=== PATIENT | female | born 2005 | race Two or more races ===

== ENCOUNTER 2023-02-17 11:00 | Inpatient (IN) | payer OTHER ==
[2023-02-17] MEDS: ELECTROLYTE-148 SOLN 1,000 ML IV SCH ×3 (12:45→21:20)
[2023-02-17 13:07] VITALS: BMI 27.1
[2023-02-17] MEDS ORDERED: AMPICILLIN - 2 GM in SODIUM CHLORIDE 100 ML IVPB ONE (13:16)
[2023-02-17 13:38] LABS: BASO % 0.4 % (0-2.0); EOS % 2.2 % (0-4.5); HEMOGLOBIN 10.8 GM/dL (10.7-15.3); LYMPH % 14.4 % (8-40); MCH 28.2 pg (25.7-33.7); MCHC 33.7 g/dl (32.0-36.0); MEAN CELL VOLUME 83.6 fl (80-96); MEAN PLT VOLUME 9.8 fl (7.5-11.1); MONO % 6.8 % (3.8-10.2); NEUT % 76.2 % (42.8-82.8); PLATELET COUNT 231 10^3/uL (134-434); RBC 3.83 M/mm3 (3.60-5.2); RDW 15.8 % (11.6-15.6); WHITE BLOOD COUNT 16.3 K/mm3 (4.0-10.0)
[2023-02-17] MEDS ORDERED: FENTANYL/BUPIVACAINE/NS/PF - PCEA - 50 ML DISP.SYRIN EP ONE ×3 (13:45→21:27)
[2023-02-17 13:47] LABS: PROTHROMBIN TIME (PATIENT) 11.6 SEC (9.7-13.0)
[2023-02-17] MEDS ORDERED: LIDO 2%/EPI 1:200000 PRESRVFRE (20 ML SDVIAL) ONE (13:47)
[2023-02-17] MEDS ORDERED: BUPIVACAINE HCL/PF 0.25% (2.5MG/ML) 10 ML VIAL ONE ×2 (13:47→21:36)
[2023-02-17 13:57] LABS: POTASSIUM 3.9 mmol/L (3.5-5.1)
[2023-02-17 13:58] LABS: CALCIUM 8.8 mg/dL (8.5-10.1)
[2023-02-17] MEDS: FENTANYL/BUPIVACAINE/NS/PF - PCEA - 50 ML DISP.SYRIN EP SCH ×3 (14:00→21:30)
[2023-02-17 14:02] LABS: CREATININE 0.6 mg/dL (0.55-1.3)
[2023-02-17 14:02] LABS: METHADONE, UR NEGATIVE (NEGATIVE); PHENCYCLIDINE,URINE NEGATIVE (NEGATIVE); URINE BARBITURATES NEGATIVE (NEGATIVE)
[2023-02-17 14:03] LABS: COCAINE, UR NEGATIVE (NEGATIVE); OPIATES, URI NEGATIVE (NEGATIVE); URINE AMPHETAMINES NEGATIVE (NEGATIVE); URINE BENZODIAZEPINES NEGATIVE (NEGATIVE)
[2023-02-17] MEDS ORDERED: NALOXONE HCL 0.4 MG/ML VIAL IVPUSH PRN (14:30)
[2023-02-17 14:54] LABS: HIV INTERPRETATION NEGATIVE (NEGATIVE)
[2023-02-17] MEDS ORDERED: OXYTOCIN 30 UNITS in 0.9% NS 30 UNIT/500 ML INFUS.BAG IVPB ONE (15:01)
[2023-02-17] MEDS ORDERED: OXYTOCIN 30 UNITS in 0.9% NS 30 UNIT/500 ML INFUS.BAG IVPB SCH (16:30)
[2023-02-17] MEDS ORDERED: AMPICILLIN SODIUM 1 GM VIAL ONE ×2 (17:09→21:23)
[2023-02-17] MEDS ORDERED: SODIUM CHLORIDE 100 ML IVPB ONE (17:09)
[2023-02-17] MEDS: AMPICILLIN - 1 GM in SODIUM CHLORIDE 100 ML IVPB SCH ×2 (17:25→21:20)
[2023-02-17] MEDS ORDERED: OXYTOCIN 20 UNITS in 0.9% NS 20 UNIT/1,000 ML INFUS.BAG IV ONE (19:45)
[2023-02-17] MEDS ORDERED: FENTANYL CITRATE/PF 50 MCG/ML VIAL ONE (21:36)
[2023-02-18] MEDS ORDERED: WITCH HAZEL 50% (TUCKS) 40 PAD/JAR PAD TP PRN (00:11)
[2023-02-18] MEDS ORDERED: METHYLERGONOVINE MALEATE 0.2 MG/1 ML AMP IM PRN (00:11)
[2023-02-18] MEDS ORDERED: oxyCODONE HCL 5 MG TABLET PO PRN (00:11)
[2023-02-18] MEDS ORDERED: BISACODYL 10 MG SUPP.RECT RC PRN (00:11)
[2023-02-18] MEDS ORDERED: BENZOCAINE 28 GM HEMORRHOIDAL OINTMENT TP PRN (00:11)
[2023-02-18] MEDS ORDERED: BENZOCAINE 20% 57 GM BOTTLE TP PRN (00:11)
[2023-02-18] MEDS ORDERED: ACETAMINOPHEN 325 MG TABLET (FP) PO PRN (00:11)
[2023-02-18] MEDS ORDERED: METHYLERGONOVINE MALEATE 0.2 MG/1 ML AMP IM ONE (00:12)
[2023-02-18] MEDS ORDERED: OXYTOCIN 20 UNITS in 0.9% NS 20 UNIT/1,000 ML INFUS.BAG IV SCH (00:15)
[2023-02-18 00:31] LABS: CORD BASE EXCESS -6.4 mmol/L (0-2); CORD PCO2 61.3 mmHg (30-78); CORD pH 7.193 (7.14-7.44)
[2023-02-18 00:32] LABS: CORD HCO3 20.9 mmHg (20-29); CORD PCO2 45.9 mmHg (30-78); CORD pH 7.276 (7.14-7.44)
[2023-02-18] MEDS ORDERED: IBUPROFEN 600 MG TABLET (FP) PO ONE (00:53)
[2023-02-18] MEDS: IBUPROFEN 600 MG TABLET (FP) PO PRN ×4 (01:06→22:44)
[2023-02-18] MEDS: AMPICILLIN - 1 GM in SODIUM CHLORIDE 100 ML IVPB SCH ×2 (08:47→21:26)
[2023-02-18] MEDS ORDERED: DIPHTH,PERTUSS(ACELL),TET 0.5 ML DISP.SYRIN IM ONE (10:00)
[2023-02-18] MEDS ORDERED: FLU VACC QS2022-23(6MOS UP)/PF 60 MCG/0.5 ML SYRINGE IM ONE (10:00)
[2023-02-19 06:59] LABS: BASO % 0.5 % (0-2.0); EOS % 4.1 % (0-4.5); HEMATOCRIT 29.1 % (32.4-45.2); HEMOGLOBIN 9.8 GM/dL (10.7-15.3); MCH 28.3 pg (25.7-33.7); MCHC 33.8 g/dl (32.0-36.0); MEAN CELL VOLUME 83.9 fl (80-96); MEAN PLT VOLUME 8.7 fl (7.5-11.1); MONO % 8.5 % (3.8-10.2); NEUT % 68.9 % (42.8-82.8); PLATELET COUNT 240 10^3/uL (134-434); RBC 3.47 M/mm3 (3.60-5.2); RDW 16.5 % (11.6-15.6); WHITE BLOOD COUNT 18.4 K/mm3 (4.0-10.0)
[2023-02-19 09:57] VITALS: BP 122/70; PULSE 90; RESP 18; TEMP 98.2
[2023-02-19] MEDS ORDERED: SENNOSIDES/DOCUSATE COMBO (SENNA PLUS) TABLET (UD) PO PRN (22:00)
== END 2023-02-19 12:20 | disposition home or self-care (01) | DRG 560 ==
LOC: JDEL 11:00 → JLDR 12:35 → J3W 02-18 01:52
PROVIDERS: ADMIT Student in an Organized Health Care Education/Training Program; ATTEND Obstetrics & Gynecology
PROC: 10E0XZZ Delivery of Products of Conception, External Approach (ICD-10-PCS; principal; 2023-02-18)
PROC: 0W8NXZZ Division of Female Perineum, External Approach (ICD-10-PCS; 2023-02-18)
DX: O80 Encounter for full-term uncomplicated delivery (principal); Z3A.39 39 weeks gestation of pregnancy; Z37.0 Single live birth
CPT/HCPCS: 36415; 36600; 80048; 80307; 82803; 85025; 85610; 85730; 86780; 86850; 86900; 86901; 87389; 90715; C9803-CS; G0008; Q2036; U0003; U0005